=== PATIENT | female | born 1990 | race American Indian/Alaskan Native ===

== ENCOUNTER 2022-02-13 18:16 | Emergency (ER) | payer MEDICAID ==
[~2022-02-13] VITALS: Ht 172.7 cm; Wt 59.1 kg
[2022-02-13 18:33] VITALS: BP 142/88
[2022-02-13] MEDS ORDERED: NAPR-56 PO (19:00)
[2022-02-13] MEDS ORDERED: penicillin V potassium 500mg tablet PO ONE (19:00)
[2022-02-13] MEDS ORDERED: PENI250T2 PO (19:00)
[2022-02-14] MEDS ORDERED: HYDR-3972 PO (17:10)
== END 2022-02-13 19:13 | disposition home or self-care (01) ==
LOC: ER 18:17
DX: K08.89 Other specified disorders of teeth and supporting structures (principal); F17.200 Nicotine dependence, unspecified, uncomplicated; Z72.89 Other problems related to lifestyle; Z79.899 Other long term (current) drug therapy
CPT/HCPCS: 99283

== ENCOUNTER 2022-02-14 16:13 | Emergency (ER) | payer MEDICAID ==
[~2022-02-14] VITALS: Ht 172.7 cm; Wt 60.0 kg
[~2022-02-14 16:13] MED LIST: NAPR-56 PO; PENI250T2 PO
[2022-02-14 16:58] VITALS: BP 146/117
[2022-02-14] MEDS ORDERED: HYDR-3972 PO (17:10)
== END 2022-02-14 17:21 | disposition home or self-care (01) ==
LOC: ER 16:13
DX: K04.7 Periapical abscess without sinus (principal); Z72.89 Other problems related to lifestyle; Z79.899 Other long term (current) drug therapy
CPT/HCPCS: 99283

== ENCOUNTER 2024-05-28 19:59 | Emergency (ER) | payer MEDICAID ==
[~2024-05-28] VITALS: Ht 172.7 cm; Wt 57.3 kg
[2024-05-28 20:06] VITALS: BP 135/82; PULSE 93; TEMP 98.3; O2SAT 100
[2024-05-28] MEDS: dexamethasone sod phosphate 10mg/ml inj PO STA (21:41)
[2024-05-28] MEDS ORDERED: AZIT500T2 PO (22:47)
[2024-05-28 22:54] VITALS: RESP 18
== END 2024-05-28 22:57 | disposition home or self-care (01) ==
LOC: ER 20:00
DX: J20.9 Acute bronchitis, unspecified (principal); J22 Unspecified acute lower respiratory infection; Z20.822 Contact with and (suspected) exposure to COVID-19
CPT/HCPCS: 36415; 71046; 87502; 87503; 87811; 99284; J1100